=== PATIENT | female | born 1940 | race Caucasian/White ===

== ENCOUNTER 2021-10-17 16:06 | Emergency (ER) | payer MEDICAID ==
[~2021-10-17] VITALS: Ht 139.7 cm; Wt 49.9 kg
--- NOTE | 2021-10-17 16:06 | NUR ---
PT BIBRA 38 FROM HOME C/O WEAKNESS X 1 WEEK AND HIGH BP PER REPORT. PT IS AAOX3 ARABIC SPEAKING ONLY, NOT IN RESPIRATORY DISTRESS, HOOKED TO V/S MONITOR, KEPT RESTED AND COMFORTABLE. WILL CONTINUE TO MONITOR.
--- NOTE | 2021-10-17 16:09 | NUR ---
AT BEDSIDE FOR EVAL.
--- NOTE | 2021-10-17 16:20 | NUR ---
IV LINE ESTABLISHED BLOOD DRAWN AND SENT TO LAB.
--- NOTE | 2021-10-17 16:25 | NUR ---
SILO MAN AT BEDSIDE FOR XRAY.
[2021-10-17 16:36] LABS: BASOPHILS % (AUTO) 0.3 % (0.0-2.0); EOSINOPHILS % (AUTO) 0.1 % (0.0-6.0); HEMATOCRIT 37 % (33-45); HEMOGLOBIN 12.4 g/dL (11.5-14.8); LYMPHOCYTES # (AUTO) 2.1 K/uL (0.8-4.8); LYMPHOCYTES % (AUTO) 23.6 % (20.0-44.0); MEAN CORPUSCULAR HGB CONC 34 g/dl (31.0-36.0); MEAN CORPUSCULAR VOLUME 89 fL (82-100); MONOCYTES # (AUTO) 0.9 K/uL (0.1-1.30); MONOCYTES % (AUTO) 9.9 % (2.0-12.0); NEUTROPHILS # (AUTO) 5.9 K/uL (1.8-8.9); NEUTROPHILS % (AUTO) 66.1 % (43.0-81.0); PLATELET COUNT (AUTO) 438 K/uL (150-450); RED BLOOD CELL COUNT(AUTO) 4.12 MIL/uL (4.0-5.2)
[2021-10-17 16:52] LABS: ALANINE AMINOTRANSFERASE 21 U/L (12-78); ALBUMIN 3.8 g/dL (3.4-5.0); ALKALINE PHOSPHATASE 136 U/L (46-116); ASPARTATE AMINOTRANSFERASE 14 U/L (15-37); BILIRUBIN,DIRECT 0.1 mg/dL (0.0-0.2); BILIRUBIN,TOTAL 0.4 mg/dL (0.2-1.0); CALCIUM, SERUM 9.3 mg/dL (8.5-10.1); CARBON DIOXIDE 32 mmol/L (21-32); CHLORIDE 85 mmol/L (98-107); GLUCOSE 88 mg/dL (74-106); POTASSIUM 3.3 mmol/L (3.5-5.1); SODIUM SERUM 123 mmol/L (136-145); TOTAL PROTEIN, SERUM 7.7 g/dL (6.4-8.2); UREA NITROGEN, BLOOD 18 mg/dL (7-18)
[2021-10-17] MEDS ORDERED: lisinopril-hctz (16:52)
--- NOTE | 2021-10-17 19:09 | NUR ---
COVID SWAB DONE AND SENT TO LAB
--- NOTE | 2021-10-17 19:40 | NUR ---
RECEIVED REPORT FROM BRET BULLARD FOR LE[facility]
--- NOTE | 2021-10-17 20:18 | NUR ---
PT RESTING COMFORTABLY IN BED, PROVIDED WARM BLANKET. FAMILY AT BEDSIDE. WILL CONTINUE TO MONITOR.
[2021-10-17] MEDS ORDERED: POTA10CA43 PO (20:52)
[2021-10-17] MEDS ORDERED: SODIUM CHLORIDE 1000 MG TABLET PO ONE (21:00)
[2021-10-17] MEDS ORDERED: POTASSIUM CHLORIDE 20 MEQ TAB.PRT.SR PO ONE (21:00)
[2021-10-17] MEDS ORDERED: SODIUM CHLORIDE 1000 MG TABLET ONE (21:19)
[2021-10-17 21:32] VITALS: BP 152/90
--- NOTE | 2021-10-17 21:32 | NUR ---
Patient discharged to home in stable condition. Written and verbal after care instructions given. Patient verbalizes understanding of instruction.
== END 2021-10-17 21:33 | disposition home or self-care (01) ==
LOC: ER 16:09
DX: R53.83 Other fatigue (principal); R20.2 Paresthesia of skin; E87.1 Hypo-osmolality and hyponatremia; E87.6 Hypokalemia; Z20.822 Contact with and (suspected) exposure to COVID-19; I10 Essential (primary) hypertension
CPT/HCPCS: 36415; 71045; 80048; 80076; 82962; 84484 ×3; 85025; 85730; 86850; 87426; 93005; 99285; C9803